=== PATIENT | female | born 1990 | race Two or more races ===

== ENCOUNTER 2019-12-19 14:40 | Emergency (ER) | payer SELFPAY ==
[~2019-12-19] VITALS: Ht 162.6 cm; Wt 50.0 kg
[2019-12-19] MEDS ORDERED: IBUPROFEN 600MG TABLET PO STA (19:13)
[2019-12-19 20:30] VITALS: BP 111/43
== END 2019-12-19 20:31 | disposition home or self-care (01) ==
LOC: ER 14:40
DX: S16.1XXA Strain of muscle, fascia and tendon at neck level, initial encounter (principal); S49.91XA Unspecified injury of right shoulder and upper arm, initial encounter; M25.511 Pain in right shoulder; V49.88XA Car occupant (driver) (passenger) injured in other specified transport accidents, initial encounter; Y93.89 Activity, other specified; Y92.89 Other specified places as the place of occurrence of the external cause; Y99.8 Other external cause status
CPT/HCPCS: 73010; 73030; 81025; 99283

== ENCOUNTER 2021-08-12 13:22 | Emergency (ER) | payer OTHER ==
[~2021-08-12] VITALS: Ht 165.1 cm; Wt 50.0 kg
[2021-08-12 13:29] VITALS: BP 120/60
[2021-08-12 14:44] LABS: CLARITY URINE CLOUDY (CLEAR); COLOR URINE DARK YELLOW (YELLOW); KETONES URINE 2+ (NEGATIVE); LEUKOCYTE ESTERASE URINE 2+ (NEGATIVE); NITRITE URINE NEGATIVE (NEGATIVE); OCCULT BLOOD URINE NEGATIVE (NEGATIVE); PROTEIN URINE TRACE (NEGATIVE); SPECIFIC GRAVITY URINE 1.027 (1.005-1.030)
[2021-08-12] MEDS ORDERED: CEPH250C2 MT (15:52)
== END 2021-08-12 16:14 | disposition home or self-care (01) ==
LOC: ER 13:22
DX: N39.0 Urinary tract infection, site not specified (principal)
CPT/HCPCS: 76830; 76856; 81003; 81025; 99284